=== PATIENT | female | born 1950 | race Two or more races ===

== ENCOUNTER 2022-07-27 05:10 | Inpatient (IN) | payer OTHER ==
[2022-07-28] MEDS ORDERED: METFORMIN HCL1000 M3 (08:48)
[2022-07-28] MEDS ORDERED: ATORVASTATIN CA20 MG (08:48)
[2022-07-28] MEDS ORDERED: NABUMETONE500 MG (08:48)
[2022-07-28] MEDS ORDERED: JANUVIA100 MG (08:48)
[2022-07-28] MEDS ORDERED: IRBESARTAN75 MG (08:48)
[2022-07-28] MEDS ORDERED: OMEPRAZOLE20 MG (08:49)
[2022-07-28] MEDS ORDERED: ZANAFLEX2 MG (08:49)
[2022-07-28] MEDS ORDERED: MONTELUKAST SOD10 MG (08:49)
[2022-07-28] MEDS ORDERED: METOPROLOL SUCC25 MG (08:49)
[2022-07-28] MEDS ORDERED: ST. JOSEPH ASPI81 M2 (08:49)
== END 2022-07-29 11:28 | disposition home or self-care (01) | DRG 743 ==
LOC: CIR.AMB 05:10 → OB/GYN 13:26 → O/R 13:26 → OB/GYN 13:53
PROVIDERS: ADMIT Obstetrics & Gynecology; ATTEND Obstetrics & Gynecology
PROC: 0UT97ZZ Resection of Uterus, Via Natural or Artificial Opening (ICD-10-PCS; principal; 2022-07-27 09:30)
DX: D25.1 Intramural leiomyoma of uterus (principal); N72 Inflammatory disease of cervix uteri; Z20.822 Contact with and (suspected) exposure to COVID-19